=== PATIENT | male | born 1985 | race Caucasian/White ===

== ENCOUNTER 2019-08-13 15:00 | Emergency (ER) | payer MEDICAID, SELFPAY ==
[~2019-08-13] VITALS: Ht 177.8 cm; Wt 68.0 kg
[2019-08-13 15:02] VITALS: Ht 177.8 cm; Wt 68.0 kg
[2019-08-13 15:32] LABS: BASOPHIL % 0.4 % (0-2); PLATELET COUNT 156 x10^3mcL (130-400); RED CELL DISTRIBUTION WIDTH 11.8 % (11.5-14.5)
[2019-08-13 15:51] LABS: CALCIUM 9.3 mg/dL (8.5-10.1); CARBON DIOXIDE 31.7 mmol/L (21-32); CHLORIDE SERUM 100 mmol/L (98-107); CREATININE SERUM 0.9 mg/dL (0.7-1.3); GFR1 > 60 mL/min; GLUCOSE SERUM 147 mg/dL (74-106); SODIUM SERUM 138 mmol/L (136-145)
[2019-08-13 15:54] LABS: ALBUMIN 3.7 g/dL (3.4-5.0); ALKALINE PHOSPHATASE 66 U/L (46-116); ALT/SGPT 255 U/L (16-63); AST/SGOT 84 U/L (15-37); BILIRUBIN TOTAL 0.5 mg/dL (0.20-1.00); TOTAL PROTEIN, SERUM 7.9 g/dL (6.4-8.2)
[2019-08-13 17:37] VITALS: BP 134/72
== END 2019-08-13 17:37 | disposition home or self-care (01) ==
LOC: ED 15:00
PROVIDERS: Emergency Medicine
DX: F41.9 Anxiety disorder, unspecified (principal); R06.02 Shortness of breath; B19.20 Unspecified viral hepatitis C without hepatic coma
CPT/HCPCS: 36415; 87804; Q0092